=== PATIENT | male | born 1985 | race African-American/Black ===

== ENCOUNTER 2020-07-29 09:59 | Inpatient (IN) ==
[2020-07-29 11:46] LABS: Basophils % 0.4 % (0.0-0.8); Eosinophils # 0.1 10*3/uL (0.0-0.87); Eosinophils % 1.2 % (0.00-10.9); Hematocrit 23.3 VOL% (42.0-52.0); Hemoglobin 7.4 GM/DL (14.0-18.0); Immature Granulocytes % 0.8 %; Immature Granulocytes Absolute 0.07 #; Lymphocytes # 2.3 10*3/uL (1.4-4.0); Lymphocytes % 24.5 % (21.2-54.2); Mean Corpuscular HGB Conc 31.8 GM/DL (32-36); Mean Corpuscular Volume 99.1 FL (87-102); Mean Platelet Volume 9.8 FL (9.6-12.0); Monocytes % 12.4 % (1.7-12.7); NRBC # 0.09 10*3/uL; Neutrophils % 60.7 % (38.7-73.9); Platelet Count 259 T/CUMM (130-400); Red Blood Count 2.35 MC/CUMM (3.8-5.5); White Blood Count 9.2 T/CUMM (4-12)
[2020-07-29 12:16] LABS: Bilirubin,Urine Negative (Negative); Blood, Urine Negative (Negative); Glucose,Urine (UA) Negative (Negative); Ketones,Urine Negative (Negative); Mucus,Urine Occasional /LPF (Occasional); Nitrite,Urine Negative (Negative); Protein,Urine 30 MG/DL; RBC,Urine 2 /HPF (0-4); Sperm,Urine Occasional /HPF (Negative); Urine Appearance CLEAR (Clear); Urine Color Yellow (Yellow); Urine Specific Gravity 1.027 (1.001-1.035); Urine Urobilinogen < 2.0 EU/DL (0.2-1.0); WBC,Urine <1 /HPF (0-6)
[2020-07-29 12:27] LABS: Albumin 3.6 G/DL (3.4-5.0); Bilirubin,Total 0.6 MG/DL (0.2-1.0); Calcium 8.8 MG/DL (8.5-10.1); Osmolality,Calculated 284.3 MOS/KG (273-304); Total Protein 6.6 G/DL (6.4-8.3)
[2020-07-29 13:00] LABS: Barbiturates Screen,Urine Negative (Negative); Benzodiazepines Screen,Urine Negative (Negative); Cannabinoid Screen,Urine Negative (Negative); Opiate Screen,Urine Negative (Negative); Phencyclidine Screen,Urine Negative (Negative)
[2020-07-29] MEDS ORDERED: GLUCAGON 1 MG VIAL IM PRN (14:05)
[2020-07-29] MEDS ORDERED: DEXTROSE 50% 25 GM/50 ML VIAL IV PRN (14:05)
[2020-07-29] MEDS ORDERED: ONDANSETRON 4 MG/2 ML VIAL IV PRN (14:05)
[2020-07-29] MEDS ORDERED: ACETAMINOPHEN 325 MG TABLET PO PRN (14:05)
[2020-07-29] MEDS ORDERED: DOCUSATE SODIUM 100 MG CAPSULE PO PRN (14:05)
[2020-07-29] MEDS ORDERED: SODIUM CHLORIDE 0.9% 1,000 ML IV PRN (14:09)
[2020-07-29] MEDS: PANTOPRAZOLE 40 MG VIAL IV SCH (14:30)
[2020-07-29] MEDS ORDERED: NICOTINE 21 MG/24 HR PATCH TRANSDERM PRN (14:31)
[2020-07-29 19:32] LABS: INR 1.1; PT Patient Result 11.4 SECS (9.8-11.9); Partial Thromboplastin Time 27.2 SECS (23.9-33.8)
[2020-07-30] MEDS: FOLIC ACID 1 MG TABLET PO SCH (08:14)
[2020-07-30] MEDS: THIAMINE 100 MG TABLET PO SCH (08:14)
[2020-07-30] MEDS: PANTOPRAZOLE 40 MG VIAL IV SCH (08:14)
[2020-07-30 09:33] LABS: Basophils % 0.5 % (0.0-0.8); Eosinophils # 0.1 10*3/uL (0.0-0.87); Eosinophils % 1.6 % (0.00-10.9); Hematocrit 25.2 VOL% (42.0-52.0); Hemoglobin 8.3 GM/DL (14.0-18.0); Immature Granulocytes % 0.8 %; Immature Granulocytes Absolute 0.07 #; Lymphocytes # 2.7 10*3/uL (1.4-4.0); Lymphocytes % 30.4 % (21.2-54.2); Mean Corpuscular HGB Conc 32.9 GM/DL (32-36); Mean Corpuscular Volume 95.8 FL (87-102); Mean Platelet Volume 9.6 FL (9.6-12.0); NRBC # 0.13 10*3/uL; Neutrophils % 51.7 % (38.7-73.9); Platelet Count 213 T/CUMM (130-400); Red Blood Count 2.63 MC/CUMM (3.8-5.5); Red Cell Distribution Width 15.3 % (9.3-17.3); White Blood Count 8.7 T/CUMM (4-12)
[2020-07-30 09:54] LABS: Albumin 3.1 G/DL (3.4-5.0); Bilirubin,Total 0.7 MG/DL (0.2-1.0); Calcium 8.5 MG/DL (8.5-10.1); Osmolality,Calculated 278.5 MOS/KG (273-304); Total Protein 5.9 G/DL (6.4-8.3)
[2020-07-30 14:35] LABS: Hemoglobin 8.4 GM/DL (14.0-18.0)
[2020-07-30 14:57] LABS: Ferritin 54.9 ng/ml (26-388)
[2020-07-31 05:34] LABS: Basophils % 0.5 % (0.0-0.8); Eosinophils # 0.2 10*3/uL (0.0-0.87); Eosinophils % 2.7 % (0.00-10.9); Hematocrit 24.4 VOL% (42.0-52.0); Immature Granulocytes % 0.6 %; Immature Granulocytes Absolute 0.05 #; Lymphocytes # 2.6 10*3/uL (1.4-4.0); Lymphocytes % 29.6 % (21.2-54.2); Mean Corpuscular HGB Conc 32.8 GM/DL (32-36); Mean Corpuscular Volume 98.8 FL (87-102); Mean Platelet Volume 10.1 FL (9.6-12.0); Monocytes % 13.9 % (1.7-12.7); NRBC # 0.16 10*3/uL; Neutrophils % 52.7 % (38.7-73.9); Platelet Count 226 T/CUMM (130-400); Red Blood Count 2.47 MC/CUMM (3.8-5.5); Red Cell Distribution Width 15.4 % (9.3-17.3); White Blood Count 8.8 T/CUMM (4-12)
[2020-07-31 05:48] LABS: Calcium 8.4 MG/DL (8.5-10.1); Osmolality,Calculated 281.3 MOS/KG (273-304)
[2020-07-31 06:02] LABS: Anisocytosis 1+; Band Neutrophils 1 % (0-10); Eosinophils 3 % (0-10); Hypochromasia 2+; Lymphocytes 27 % (20-55); Macrocytosis 1+; Nucleated Red Blood Cells 2 (0-5); Platelet Estimate Normal; Segmented Neutrophils 56 % (50-85); Target Cells 1+; Total Cells Counted 100
[2020-07-31] MEDS: FOLIC ACID 1 MG TABLET PO SCH (09:11)
[2020-07-31] MEDS: THIAMINE 100 MG TABLET PO SCH (09:12)
[2020-07-31] MEDS: PANTOPRAZOLE 40 MG VIAL IV SCH (09:14)
[2020-07-31 13:24] VITALS: BP 137/63
== END 2020-07-31 14:44 | disposition home or self-care (01) | DRG 812 ==
LOC: N.ED 09:59 → N.EDINP 14:05 → N.TELES 19:39
PROVIDERS: ADMIT Family Medicine; ATTEND Family Medicine